=== PATIENT | female | born 1975 | race Caucasian/White ===

== ENCOUNTER 2018-12-22 20:44 | Emergency (ER) | payer MEDICAID | END 2018-12-23 00:13 | disposition home or self-care (01) | LOC: FTE 12-23 00:13 | DX: T19.2XXA Foreign body in vulva and vagina, initial encounter (principal); X58.XXXA Exposure to other specified factors, initial encounter; Y92.9 Unspecified place or not applicable | CPT/HCPCS: 81025; 99284 ==